=== PATIENT | female | born 1945 | race Caucasian/White ===

== ENCOUNTER 2021-05-17 16:42 | Emergency (ER) | payer MEDICARE, OTHER, SELFPAY ==
[2021-05-17 17:01] VITALS: BP 169/96; PULSE 74; RESP 22; TEMP 36.9; O2SAT 100
--- NOTE | 2021-05-17 17:15 | DI.RAD.S_ITS ---
PROCEDURE: XR CHEST 2V INDICATIONS: poss aspiration TECHNIQUE: 2 views of the chest were acquired. COMPARISON: None. FINDINGS: Surgical changes and devices: None. Lungs and pleura: Lungs are clear. No pleural effusions or pneumothorax. Mediastinum: Mediastinal contours are normal. Heart size is normal. Bones and chest wall: No suspicious bony abnormalities. Soft tissues appear unremarkable. IMPRESSION: No acute cardiopulmonary pathology. Dictated by: Rufus Edwards M.D. on 05/17/2021 at 17:27 Approved by: Rufus Edwards M.D. on 05/17/2021 at 17:27
--- NOTE | 2021-05-17 19:28 | ED_ITS ---
HPI - General Adult General Chief complaint: Upper Respiratory Symptoms Stated complaint: ASPIRATED A PILL Time Seen by Provider: 05/17/21 19:19 Source: patient Mode of arrival: Ambulatory History of Present Illness HPI narrative: Patient is a 75-year-old female. Earlier today she stated that she was trying to swallow 1 of her calcium supplement pills. States that she thought that she potentially aspirated the pill. She was not having any shortness of breath but she did feel very unusual when she was taking a deep breath. She got up and walked around hoping that this would help the symptoms. She also drank some water thinking this would help symptoms. She had an episode where she coughed and she stated that powder came out of her mouth. Afterwards she did feel somewhat better. After checking into the emergency department and waiting she had another coughing episode where she states that she coughed up a small portion of the pill. She now feels somewhat better but not completely back to normal. She denies any chest pain. Is able to swallow. No fevers. Related Data Home Medications Medication Instructions Recorded Confirmed ACETAMINOPHEN (#TYLENOL) 1,000 mg PO PRN #0 12/13/10 ASCORBIC ACID (VITAMIN C) 500 mg PO BID #0 12/13/10 ASPIRIN (Aspirin EC) 81 mg PO QDAY #0 12/13/10 COENZYME Q10 (COQ10) 100 mg PO QDAY #0 12/13/10 CYANOCOBALAMIN (VITAMIN B-12) 1,000 mcg PO QDAY #0 12/13/10 (Vitamin B-12) IBUPROFEN (IBU) 500 mg PO PRN #0 12/13/10 Pyridoxine (#VITAMIN B6) 100 mg PO QDAY #0 12/13/10 [CALCIUM/MAG/VIT D] 1,500 mg PO TID #0 12/13/10 cholecalciferol (vitamin D3) 25 1,000 unit PO QDAY #0 12/13/10 mcg (1,000 unit) tablet (Vitamin D3) ibandronate 150 mg tablet (Boniva) 150 mg PO QMONTH #0 12/13/10 omeprazole magnesium 20 mg 20 mg PO BID #0 12/13/10 tablet,delayed release (Prilosec OTC) Previous Rx's Medication Instructions Recorded promethazine 6.25 mg-codeine 10 5 ml PO Q4HP PRN #120 ml 08/02/17 mg/5 mL syrup Allergies Allergy/AdvReac Type Severity Reaction Status Date / Time No Known Allergies Allergy Uncoded 09/19/17 12:02 Review of Systems Cardiovascular Cardiovascular: Reports as per HPI and Reports system reviewed and no additional complaints, except as documented Respiratory Respiratory: Reports as per HPI and Reports system reviewed and no additional complaints, except as documented Gastrointestinal Gastrointestinal: Reports system reviewed and no additional complaints, except as documented Hematologic/Lymphatic On Anticoagulants: No Patient History Medical History Influenza A Social History marital status: lives independently: Yes Exam Initial Vital Signs Initial Vital Signs: Vital Signs Temperature 98.5 F 05/17/21 17:01 Pulse Rate 74 05/17/21 17:01 Respiratory Rate 22 05/17/21 17:01 Blood Pressure 169/96 H 05/17/21 17:01 Pulse Oximetry 100 05/17/21 17:01 Const General: cooperative and healthy appearing Resp Effort & Inspection: normal respiratory effort, no cough, not labored, no respiratory distress and not tachypneic Auscultation: clear to auscultation bilaterally Cardio Rate: regular rate Rhythm: regular rhythm Skin General: no rashes or lesions noted Neuro General: patient alert, patient awake and moves all extremities Course Orders Ordered: ED Orders 05/17/21 17:15 Chest [XR chest 2V] Stat Vital Signs Vital signs: Vital Signs - 8 hr 05/17/21 17:01 Temperature 98.5 F Pulse Rate 74 Respiratory Rate 22 Blood Pressure 169/96 H Pulse Oximetry 100 Medical Decision Making Imaging Data Chest x-ray: Radiologist's Impression: [address] [id number] XRay Report Signed Patient: Manjinder Gallegos MR#: [id number] : 1945 Acct:[id number] Age/Sex: 75 / F Date of Service: 05/17/21 Loc: ED Accession Number: [id number] ?? Procedure: XR chest 2V Ordering Provider: Shannon Rivera D.O. PROCEDURE:? XR CHEST 2V ? INDICATIONS:? poss aspiration ? TECHNIQUE:? 2 views of the chest were acquired.? ? COMPARISON:? None. ? FINDINGS:? ? Surgical changes and devices:? None.? ? Lungs and pleura:? Lungs are clear.? No pleural effusions or pneumothorax.? ? Mediastinum:? Mediastinal contours are normal.? Heart size is normal.? ? Bones and chest wall:? No suspicious bony abnormalities.? Soft tissues appear unremarkable.? ? IMPRESSION:? No acute cardiopulmonary pathology. ? ? Dictated by: Rufus Edwards M.D. on 05/17/2021 at 17:27 ? ? Approved by: Rufus Edwards M.D. on 05/17/2021 at 17:27?? MDM Narrative Medical decision making narrative: Clear lung exam, not tachypneic. Not hypoxic. No wheezing. Afebrile. No respiratory distress. No chest pain. Chest x-ray is unremarkable. Given her presentation I would not be surprised if she did aspirate the pill however there is no respiratory distress and no signs of pneumonitis currently. No signs of aspiration pneumonia currently had a discussion with her and her who is at bedside with regard to this. No further workup needed in the emergency department. We did discuss return precautions with regard to concerns with pneumonitis or aspiration pneumonia. She expressed understanding and agreement. Discharge Plan Departure Patient Disposition: Home Clinical Impression: Aspiration into airway Activity Restrictions/Additional Instructions: You have no restrictions on your activities. You can eat and drink like normal. You can exercise like normal. Contact your primary doctor for follow-up. Return to the emergency department for any new symptoms to include fevers, problems breathing, change in color of your sputum or any other worsening symptoms. Prescriptions: No Action omeprazole magnesium [Prilosec OTC] 20 MG tablet,delayed release (DR/EC) 20 mg PO BID Qty: 0 0RF [CALCIUM/MAG/VIT D] 1,500 mg PO TID Qty: 0 0RF ASCORBIC ACID (VITAMIN C) 500 mg PO BID Qty: 0 0RF COENZYME Q10 (COQ10) 100 mg PO QDAY Qty: 0 0RF ASPIRIN (Aspirin EC) 81 mg PO QDAY Qty: 0 0RF cholecalciferol (vitamin D3) [Vitamin D3] 1,000 UNIT tablet 1,000 unit PO QDAY Qty: 0 0RF Pyridoxine (#VITAMIN B6) 100 mg PO QDAY Qty: 0 0RF CYANOCOBALAMIN (VITAMIN B-12) (Vitamin B-12) 1,000 mcg PO QDAY Qty: 0 0RF ACETAMINOPHEN (#TYLENOL) 1,000 mg PO PRN Qty: 0 0RF IBUPROFEN (IBU) 500 mg PO PRN Qty: 0 0RF ibandronate [Boniva] 150 MG tablet 150 mg PO QMONTH Qty: 0 0RF promethazine-codeine 6.25 MG/10 MG syrup 5 ml PO Q4HP PRNQty: 120 0RF
== END 2021-05-17 19:53 | disposition home or self-care (01) ==
PROVIDERS: Emergency Provider Emergency Medicine
DX: T17.998A Other foreign object in respiratory tract, part unspecified causing other injury, initial encounter (principal); X58.XXXA Exposure to other specified factors, initial encounter
CPT/HCPCS: 71046; 99283